=== PATIENT | female | born 1990 | race Caucasian/White ===

== ENCOUNTER 2018-10-31 20:19 | Inpatient (IN) ==
[2018-10-31] MEDS ORDERED: ZOFRAN IV ONE (20:35)
[2018-10-31] MEDS ORDERED: TORADOL IV ONE (20:35)
[2018-10-31] MEDS ORDERED: G.I. COCKTAIL PO ONE (20:47)
--- NOTE | 2018-10-31 20:51 | PROVIDER DOCUMENTATION ---
HPI-Abdominal Pain/GI Problem - General Chief Complaint: Abdominal Pain Stated Complaint: GALLBLADDER ATTACK Time Seen by Provider: 10/31/18 20:32 Source: patient Allergies/Adverse Reactions: Patient Allergies Allergy/AdvReac Type Severity Reaction Status Date / Time pamabrom [From [facility]] Allergy Mild fever, Verified 10/31/18 20:30 breakout pyrilamine maleate * Allergy Mild fever, Verified 10/31/18 20:30 [From [facility]] breakout doxycycline Allergy Unknown Verified 10/31/18 20:30 Home Medications: Home Medication List Medication Instructions Recorded Confirmed Last Taken Type Hydrocodone/APAP 5 mg/325 mg 1 each PO Q3-4H PRN PRN #30 tablet 01/05/15 Unknown Rx [[place]-5] Ibuprofen [Motrin] 800 mg PO Q8H PRN PRN #30 tablet 01/05/15 Unknown Rx Sulfamethoxazole/Trimethoprim 1 each PO BID #10 tablet 01/15/15 Unknown Rx [Bactrim Ds Tablet] Cyanocobalamin (Vitamin B-12) 1,000 mcg PO DAILY 10/31/18 10/31/18 Unknown History [Vitamin B-12] Levothyroxine Sodium 125 mcg PO DAILY 10/31/18 10/31/18 Unknown History Polyethylene Glycol 3350 [Miralax] 17 gm PO DAILY 10/31/18 10/31/18 Unknown History - History of Present Illness-ABD Nature of Presenting Problems: 28 YOF PRESENTS WITH RUQ PAIN RADIATING TO THE EPIGASTRIC REGION SINCE YESTERDAY AFTER EATING OMANI FOOD. SHE HAS NAUSEA NO VOMITING. DENIES FEVER, CHILLS, SOB, CP, DIARRHEA. LAST BM TODAY WAS WNL Abdominal Pain Onset Location: reports: RUQ Pain Radiation: reports: epigastric Quality of Pain: reports: aching Severity in ED: reports: moderate Onset/Duration: reports: 24 hours ago Timing: reports: still present Activities at Onset: reports: none Exposure to sick contacts?: No Modifying Factors: improves with: nothing Associated Symptoms: reports: nausea Last BM: this morning Dark Stools Present?: reports: none noticed Rectal Bleeding: reports: none Rectal Pain: reports: none Emesis Description: reports: none Bruising or Bleeding Gums?: No Similar Symptoms Previously?: No Recently seen or treated by another doctor?: No Review of Systems - Adult - REVIEW OF SYSTEMS - ADULT Constitutional: reports: no symptoms reported. denies: see HPI, chills, fever, fatique, night sweats, weight gain, weight loss, other Eyes: reports: no symptoms reported. denies: see HPI, discharge, dry eyes, decreased vision, blurred vision, double vision, eye pain, redness, other Ears, Nose, Mouth & Throat: reports: no symptoms reported. denies: see HPI, ear discharge, ear pain, hearing loss, tinnitus, epistaxis, sinus problem, nose pain, loose teeth, mouth/dental pain, mouth swelling, hoarseness, throat pain, throat swelling, other Cardiovascular: reports: no symptoms reported. denies: see HPI, chest pain, edema, heart murmur, irregular heart rate, orthopnea, palpitations, poor circulation, PND, syncope, other Respiratory: reports: no symptoms reported. denies: see HPI, chronic cough, cough, dyspnea on exertion, excessive sputum production, hemoptysis, pleurisy, shortness of breath, wheezing, other Gastrointestinal: reports: see HPI, hematemesis, nausea. denies: no symptoms reported, abdominal pain, constipation, diarrhea, difficulty swallowing, frequent heartburn, poor appetite, rectal bleeding, vomiting, other Genitourinary: reports: no symptoms reported. denies: see HPI, dysuria, discharge, frequency, flank pain, frequent UTI's, hematuria, hesitency, incontinence, urinary retention, urgency, other Musculoskeletal: reports: no symptoms reported. denies: see HPI, bone pain, back pain, frequent leg cramps, joint pain, joint swelling, muscle aches, muscle weakness, neck pain, other Integumentary: reports: no symptoms reported. denies: see HPI, hives, hair loss, itching, mole changes, nail changes, rash, skin sores/ulcer, skin thickening, other Neurological: reports: no symptoms reported. denies: see HPI, ataxia, dizzi ness/vertigo, headache/migraines, loss of balance, numbness, paresthesia, seizure, slurred speech, syncope, tremors, other Psychiatric: reports: no symptoms reported. denies: see HPI, anxiety, anti- depressant use, alcohol/drug dependence, depression, emotional problems, ins omnia, panic attacks, suicidal thoughts, other Endocrine: reports: no symptoms reported. denies: see HPI, change in skin pigment, excessive sweating, goiter, cold intolerance, heat intolerance, increased hunger, increased thirst, polyuria, other Hematologic/Lymphatic: reports: no symptoms reported. denies: see HPI, blood clots, easy bruising, low blood count, lymphedema, prolonged bleeding, swollen lymph nodes, transfusions, other Allergic/Immunologic: reports: no symptoms reported. denies: see HPI, allergic reactions, allergic rhinitis, asthma, eczema, food allergy, frequent infections, hay fever, hives, positive PPD, urticaria, other Past History - Adult - PAST MEDICAL HISTORY-ADULT Review of Records: reports: Nursing Assessment Review, Social history reviewed & non-contributory. Major Childhood Illnesses: reports: denies history Cardiovascular: reports: denies history Respiratory: reports: denies history Gastrointestinal: reports: denies history Obstetrical/Gynecological: reports: denies history Genitourinary: reports: denies history Musculoskeletal: reports: denies history Neurological: reports: denies history Endocrine/Immune: reports: denies history Other Conditions: reports: denies history Physical Exam-General - PHYSICAL EXAM-ADULT Initial Vital Signs Reviewed: Yes - CONSTITUTIONAL General Appearance: appears well, alert, no apparent distress - EYES Eyes: PERRL/EOMI, pink conjunctivae - HEAD, EARS, NOSE, MOUTH & THROAT HENMT: normocephalic/atraumatic, moist mucous membranes, normal ENT inspection - NECK Neck: non-tender, full range of motion, supple - RESPIRATORY Respiratory: chest non-tender, lungs clear, normal breath sounds, no pleuratic chest pain, no respiratory distress, no accessory muscle use - CARDIOVASCULAR Cardiovascular: normal peripheral pulses, regular rate, rhythm, no edema, no gallop, no JVD, no murmur - GASTROINTESTINAL (ABDOMEN) Abdominal Exam: normal bowel sounds, soft, tenderness (RUQ AND EPIGASTRIC) - LYMPHATIC Lymphatic: no adenopathy - MUSCULOSKELETAL Back Exam: normal inspection, no CVA tenderness, no vertebral tenderness Extremity: normal range of motion, non-tender, normal gait, normal inspection - SKIN Integumentary: normal color, normal turgor, warm/dry Progress - PLAN OF CARE/RESULTS Progress/Plan/Lab Results: Vital Signs - 8 hr 10/31/18 20:27 Temperature 97.8 F Pulse Rate 77 Respiratory Rate 18 Blood Pressure 142/102 O2 Sat by Pulse Oximetry 100 Orders Category Date Time Status Saline Loc NOW Care 10/31/18 20:35 Active AMYLASE [CHEM] Stat Lab 10/31/18 20:35 Uncollected CBC WITH ELECTRONIC DIFF [HEME] Stat Lab 10/31/18 20:34 Uncollected COMPREHENSIVE METABOLIC PANEL [CHEM] Stat Lab 10/31/18 20:35 Uncollected LIPASE [CHEM] Stat Lab 10/31/18 20:35 Uncollected UA NIMS W/REFLEX CULT [URINALYSIS] Stat Lab 10/31/18 20:35 Uncollected Ketorolac [Toradol] Med 10/31/18 20:35 Discontinued 30 mg IV NOW ONE Ondansetron [Zofran] Med 10/31/18 20:35 Discontinued 4 mg IV NOW ONE Result Diagrams: 10/31/18 21:14 10/31/18 21:14 - CT/MRI 1 CT Study: Abdomen, Pelvis Impression: Abnormal (1. CHOLELITHIASIS WITH GALLBLADDER WALL THICKENING. CONSIDERATIONS INCLUDE ACUTE CHOLECYSTITIS 22. MILD BILIARY DUCT DILATION WITHOUT STONE IDENTIFIED) - CONSULTS/PCP/HOSPITALIST Notification #1 *Consult/PCP/Hospitalist*: DR OROPEZA Time Discussed: 00:01 Consult Disposition: Admit #2 Consult: DR MORGAN Time Discussed: 00:07 Consult Disposition: Admit Departure - Departure Date of Disposition Decision: 11/01/18 Time of Disposition Decision: 00:07 DIAGNOSIS: Nausea & vomiting, Cholecystitis, Cholelithiases Disposition: HOME 01 Certified Medical Emergency: Emergent Condition: Stable Referrals and Follow-Ups: John Samayoa MD [Primary Care Provider] - - Critical Care Note This patient required my direct & personal management of CC.: No Attestation - Physician/ CINTHYA Attestation Patient care was provided by Advanced Practice Provider:: Yes Advanced Practice Provider:: Catina Meng Advanced Practice Provider documentation review:: The Mid-level provider documentation, treatment plan and medical decision making was reviewed by the physician who agrees with all treatment and medical decision making by the MLP. The physician spent face to face time with patient:: No Advanced Practice Provider documentation review:: Supervising physician onsite and consulted in the evaluation and care of this patient. The physician did not have a face to face encounter with the patient.
[2018-10-31 21:31] LABS: BASO# 0.03 X1000 (0.0-0.2); BASO% 0.4 % (0.0-0.8); EOS# 0.15 X1000 (0.0-0.7); HEMATOCRIT 37.9 % (37.0-47.0); HEMOGLOBIN 12.8 g/dL (12.0-16.0); LYMPH# 3.97 X1000 (1.2-3.4); LYMPH% 54.1 % (20.5-51.1); MCHC 33.8 g/dL (33-37); MCV 85.9 FL (81-99); MONO# 0.45 X1000 (0.11-0.59); MONO% 6.1 % (1.7-9.3); MPV 11.3 FL (7.4-10.4); NEUT# 2.74 X1000 (1.4-6.5); NEUT% 37.4 % (42.2-75.2); PLT 232 X1000 (130-400); RBC 4.41 XMIL (4.2-5.4); RDW 12.9 % (11.5-14.5); WBC 7.34 X1000 (4.8-10.8)
[2018-10-31 21:40] LABS: AGAP 12; ALB/GLOB RATIO 1.1; ALKALINE PHOSPHATASE 62 U/L (32-104); AMYLASE 26 U/L (20-200); BUN 10 mg/dL (8-22); CALCIUM 9.2 mg/dL (8.8-10.2); CHLORIDE 104 mmol/L (98-107); COSMO 279; CREATININE 0.7 mg/dL (0.5-0.9); ESTIMATED GFR > 60; GLUCOSE 117 mg/dL (70-104); GOT 17 U/L (10-30); GPT 14 U/L (10-36); LIPASE 21 U/L (13-60); POTASSIUM 3.8 mmol/L (3.5-5.1); SODIUM 140 mmol/L (136-145); TCO2 24 mmol/L (25-35); TOTAL BILIRUBIN 0.27 mg/dL (0.20-1.00); TOTAL PROTEIN 7.7 g/dL (6.3-8.3)
[2018-10-31 22:37] LABS: BILIRUBIN URINE NEGATIVE (NEGATIVE); BLOOD URINE NEGATIVE (NEGATIVE); COLOR YELLOW; GLUCOSE URINE NEGATIVE (NEGATIVE); KETONE URINE NEGATIVE (NEGATIVE); LEUKOCYTES URINE MODERATE (NEGATIVE); NITRITE URINE NEGATIVE (NEGATIVE); PROTEIN URINE NEGATIVE (NEGATIVE); SP GRAVITY URINE 1.017; TURBIDITY URINE HAZY (CLEAR); UR EPITHELIAL CELLS <10 /HPF (<10); URINE BACTERIA 1+ /HPF; URINE RBC <10 /HPF (<10); URINE SOURCE CLEAN CATCH; UROBILINOGEN URINE NORMAL (NORMAL)
[2018-11-01] MEDS ORDERED: MORPHINE IV PRN (01:44)
[2018-11-01] MEDS: NS 1,000 ML IV SCH ×2 (02:52→14:57)
--- NOTE | 2018-11-01 03:31 | HISTORY AND PHYSICAL ---
PRIMARY CARE PHYSICIAN: Dr. Samayoa. CHIEF COMPLAINT: Abdominal pain x2 days. HISTORY OF PRESENTING ILLNESS: A 28-year-old female without any significant past medical history, had presented to emergency department with a 2 day history of having right upper quadrant pain. She states that she was nauseated and not feeling well, subsequently she had come to the emergency department. In the ED she was evaluated. She had a CT scan done which did show suspicion for cholecystitis. Her case was discussed with General Surgery who recommended the patient be admitted for further evaluation and management. At the time of my examination patient denied any headache, fever, chills, chest pain, shortness of breath. No weight changes but complained of abdominal pain and being nauseated. PAST MEDICAL HISTORY: Includes Andrea thyroiditis. PAST SURGICAL HISTORY: None. ALLERGIES: Doxycycline, diuretics. CURRENT MEDICATIONS: None. SOCIAL HISTORY: No history of smoking. Admits to social alcohol use. Denies any illicit drug use. FAMILY HISTORY: No history of coronary disease. REVIEW OF SYSTEMS: Fourteen point review of systems is as in HPI. Other systems negative. PHYSICAL EXAMINATION: GENERAL: Cooperative, friendly female. She is resting comfortably now. VITAL SIGNS: Temperature 97.8 degrees, pulse 77, respirations 18, blood pressure 142/102. HEENT: Atraumatic, normocephalic. Extraocular movements intact. PERRLA. NECK: Supple. CHEST: Clear to auscultation. CARDIOVASCULAR: Regular rate and rhythm. ABDOMEN: Soft, right upper tenderness. EXTREMITIES: No edema. NEUROLOGIC: She is awake, alert, oriented x3. : No bladder distention. SKIN: Warm. LABORATORIES AND STUDIES: WBC 7.34, hemoglobin 12.8, hematocrit 37.9, platelets 232,000. Sodium 140, potassium 3.8, chloride 104, CO2 24, BUN is 10, creatinine 0.72, glucose 117. ASSESSMENT: A 28-year-old female without any significant past medical history presented to emergency department with a 2 day history of worsening right upper quadrant pain. She was evaluated the emergency department. She had imaging done which did show the possibility of acute cholecystitis, subsequently she will require admission for further management. ASSESSMENT: Acute cholecystitis. PLAN: 1. We will admit patient to medical floor with telemetry. 2. We will keep patient n.p.o. Give her adequate pain control, antiemetics and gentle hydration. 3. We will consult General Surgery. 4. We will put patient on DVT prophylaxis SCD. 5. We will continue to follow and reassess. Make further recommendation based on patient's clinical course. cc: Porfirio Tobar MD
[2018-11-01] MEDS: ZOFRAN IV PRN ×2 (03:36→13:03)
--- NOTE | 2018-11-01 06:58 | GENERAL SURGERY CONSULTATION ---
DATE: 11/01/2018 REQUESTING PHYSICIAN: Hospitalist. REASON FOR CONSULTATION: Concerning cholecystitis. HISTORY OF PRESENT ILLNESS: A 28-year-old female presenting with right upper quadrant pain for at least 2 days. She has a strong family history of cholecystitis and gallbladder issues. She was sent to the emergency department for this nausea and right upper quadrant pain, had a CT scan that showed cholecystitis. She has been admitted to the hospitalist for evaluation. She has been started on antibiotics. She is feeling a little bit better, but still has some right upper quadrant pain. PAST MEDICAL HISTORY: Andrea's thyroiditis. PAST SURGICAL HISTORY: None. ALLERGIES: Doxycycline and diuretics. CURRENT MEDICATIONS: She is on Zosyn. SOCIAL HISTORY: No history of smoking. FAMILY HISTORY: Positive for gallbladder disease. REVIEW OF SYSTEMS: A full 14 systems reviewed and negative, except those specified in HPI. PHYSICAL EXAMINATION: Vital Signs: Patient is currently afebrile. Her vital signs are stable. General: No acute distress. HEENT: Normocephalic, atraumatic. Pupils equal, round, reactive to light. Mucous membranes moist. Oropharynx benign. No scleral icterus noted. Neck: Supple. Trachea midline. Cardiovascular: Regular rate and rhythm. Lungs: Grossly clear. Abdomen: Soft, tender to palpation right upper quadrant. Positive Payton sign. Extremities: Moves all extremities. Neurologic: Grossly intact. Skin: No signs of jaundice. Vascular: All extremities perfused. LABORATORY: White blood count is 7, hematocrit is normal, platelet count normal. Bilirubin, AST, ALT, alkaline phosphatase, and lipase are all normal. IMAGING: CT scan, as noted above, shows cholecystitis. ASSESSMENT AND PLAN: A 28-year-old female with cholecystitis. Cholecystitis. At this time, discussed with her surgical intervention. Discussed with her the risks, benefits, alternatives of the procedure. Risks including, but not limited to, bleeding, infection, risk of anesthesia, risk of common bile duct injury, risk of bile leak. This was all discussed, she wants to proceed. We will schedule her for surgery today. cc: Armen Crespo MD
[2018-11-01] MEDS: ZOSYN 3.375 GM in NS 50 ML IV SCH ×2 (07:36→14:58)
[2018-11-01] MEDS ORDERED: FENTANYL ONE (08:43)
[2018-11-01] MEDS ORDERED: DIPRIVAN 1% ONE (08:43)
[2018-11-01] MEDS ORDERED: XYLOCAINE-MPF 2% ONE (08:43)
[2018-11-01] MEDS ORDERED: DECADRON ONE (08:43)
[2018-11-01] MEDS ORDERED: ROBINUL ONE (08:43)
[2018-11-01] MEDS ORDERED: ZOFRAN ONE (08:43)
[2018-11-01] MEDS ORDERED: ZEMURON ONE (08:44)
[2018-11-01] MEDS ORDERED: QUELICIN (DOSE) ONE (08:44)
[2018-11-01] MEDS ORDERED: SENSORCAINE 0.25%/EPI 1:200,000 ONE (09:04)
[2018-11-01] MEDS ORDERED: REGLAN ONE (09:04)
[2018-11-01] MEDS ORDERED: VERSED ONE (09:04)
[2018-11-01] MEDS ORDERED: LR 1,000 ML ONE (09:04)
[2018-11-01] MEDS ORDERED: PEPCID ONE (09:05)
[2018-11-01] MEDS ORDERED: BENADRYL ONE (09:30)
[2018-11-01] MEDS ORDERED: NEOSTIGMINE ONE (09:48)
--- NOTE | 2018-11-01 10:50 | Diag Imaging Result Doc PS360 ---
EXAM: CT ABD/PELVIS W/IV CONT ONLY INDICATION: ABDOMINAL PAIN TENDERNESS, N/V TECHNIQUE: This exam was performed using automated exposure control, adjustment of mA or kV according to patient size, and/or use of iterative reconstruction technique. COMPARISON: None. FINDINGS: There is scarring versus subsegmental atelectasis at both lung bases, more prominent on the right. There is a calcified stone layering in the gallbladder lumen. The gallbladder wall does appear to be mildly thickened. Cholecystitis cannot be excluded. There is minimal intrahepatic biliary dilatation. The liver is unremarkable, otherwise. The spleen, pancreas, and adrenal glands are unremarkable. There is a tiny cyst at the lower pole of the right kidney. The kidneys are unremarkable, otherwise. Urinary bladder appears normal. The reproductive tract is unremarkable as imaged. The appendix is normal. There is no evidence of focal bowel wall thickening or bowel obstruction. The remainder of the GI tract is unremarkable. IMPRESSION: 1.Cholelithiasis with mild gallbladder wall thickening. Cholecystitis cannot be excluded. 2.Minimal intrahepatic biliary dilatation. No radiopaque ductal stones are appreciated. 3.Other incidental/nonacute findings detailed above. Electronically signed by Danilo Mosquera 11/01/2018 10:47 AM
--- NOTE | 2018-11-01 10:51 | OPERATIVE NOTE ---
PROCEDURE DATE : 11/01/2018 PREOPERATIVE DIAGNOSIS: Cholecystitis. POSTOP DIAGNOSIS: Acute cholecystitis. PROCEDURE: Laparoscopic cholecystectomy. SURGEON: Armen Crespo MD. ONBOARDING SPECIALIST: None. ANESTHESIA: General endotracheal. INTRAOPERATIVE FINDINGS: Acute cholecystitis. COMPLICATIONS: None at time of dictation. ESTIMATED BLOOD LOSS: 10 mL. SPECIMEN REMOVED: Gallbladder. BRIEF HISTORY: A 28-year-old female presenting with right upper quadrant epigastric pain. She had imaging that suggested cholecystitis and it was felt that she would benefit from a cholecystectomy. The risks, benefits, and alternatives were discussed and all questions answered. DESCRIPTION OF PROCEDURE: After informed consent was obtained, the patient was brought to the Operative Theatre, transferred to the operative table, and placed in the supine position. General endotracheal anesthesia was then performed without complication. A formal time-out was then performed confirming the patient and the procedure and all were in agreement. At that time, attention was given to the abdomen and an infraumbilical incision was made through which, using Optiview technique, we inserted an 11 mm trocar, connected insufflation, and pneumoperitoneum was achieved. Under direct visualization, we placed 3 more trocars, all 5 mm, 1 in the subxiphoid and 2 in the right upper quadrant. Using these, the gallbladder was identified. It was inflamed consistent with acute cholecystitis. We grasped it and retracted it cephalad. We dissected out the cystic duct and cystic artery to achieve the critical view of safety. We doubly clipped and ligated the cystic duct and cystic artery and then dissected the gallbladder off the gallbladder fossa. We brought it out through the inferior umbilical incision in an EndoCatch. We then reexamined the gallbladder fossa and there was no active drainage of bile and no bleeding. We irrigated the abdomen until the suction fluid was clear. We then closed the infraumbilical incision with 0 Vicryl and a Nikita-Owen device. We then removed all trocars, disconnected insufflation, and pneumoperitoneum was released. All skin incisions were closed with 4-0 Monocryl. The patient tolerated the procedure well and was transferred back to the recovery room. cc: Armen Crespo MD
[2018-11-01] MEDS ORDERED: NORCO-10 PO PRN (11:26)
[2018-11-01 12:15] VITALS: BP 111/73
--- NOTE | 2018-11-01 17:31 | DISCHARGE SUMMARY ---
ADMISSION DATE: 11/01/2018 DISCHARGE DATE: 11/01/2018 ADMISSION DIAGNOSES: An acute cholecystitis. DISCHARGE DIAGNOSES: Laparoscopic cholecystectomy for an acute cholecystitis. SUMMARY OF FINDINGS: This is a 28-year-old female without any significant past medical history, presented with a 2-day history of having right upper quadrant abdominal pain, nauseated and just not feeling well, came to the emergency room, had a CT scan that showed suspicion for cholecystitis. We consulted General Surgery who took the patient in and did a laparoscopic cholecystectomy this morning. She tolerated the procedure well and was felt this afternoon that she could be discharged home so she will be discharged on the following medications. She will continue her home medications and she will have a prescription for Lula 10 1 p.o. q.4 hours p.r.n. FOLLOWUP: She will need to follow up with Dr. Crespo, General Surgery in 2 weeks and call the office to make an appointment. She will also follow up with her primary care physician in the next 1 to 2 weeks. All discharge instructions have been reviewed with the patient. She verbalizes understanding. TIME SPENT: 35 minutes. Dictated by TORIE Barney for Andrea Banegas MD cc: MD Andrea Boggs MD
== END 2018-11-01 16:45 | disposition home or self-care (01) | DRG 419 ==
LOC: ED 20:19 → 4N 11-01 02:03 → SUATTDRO 11-01 02:03
PROVIDERS: ATTEND Internal Medicine